=== PATIENT | male | born 1945 | race Two or more races ===

== ENCOUNTER 2017-12-02 15:53 | Emergency (ER) | payer SELFPAY ==
[2017-12-02] MEDS ORDERED: ACETAMINOPHEN 500 MG TABLET (FP) PO ONE (16:14)
--- NOTE | 2017-12-02 16:18 | PDOC ---
History of Present Illness - General Chief Complaint: Injury Stated Complaint: LEFT LEG PAIN,INJURY Time Seen by Provider: 12/02/17 15:57 - History of Present Illness Initial Comments: 12/02/17 16:17 72 year old male with NIDDM and herniated disc presents to the ED following a mechanical fall 3 days previous. Patient was walking down a wooden staircase in socks and slipped on the stairs falling down the last 4-5 stairs onto his L side. Denies any pre fall chest pain, shortness of breath, lightheadness, visual changes. Patient denies any head trauma or LOC and was immediately ambulatory afterwards. Patient has been taking Motrin for the pain but presented to the ED because he was concerned about the bruising. Patient has been ambulatory and completing all his ADL's as per baseline. Patient states Motrin has provided significant relief of the pain. NKDA Surgical: none Social: denies nicotine, denies alcohol, denies recreational drugs Past History - Past Medical History Allergies/Adverse Reactions: Allergies Allergy/AdvReac Type Severity Reaction Status Date / Time No Known Allergies Allergy Verified 12/02/17 15:54 Home Medications: Ambulatory Orders Unobtainable [Unobtainable] 12/02/17 Review of Systems - Review of Systems Constitutional: No: Chills, Fever HEENTM: No: Recent change in vision Respiratory: No: Cough, Shortness of Breath Cardiac (ROS): No: Chest Pain, Lightheadedness, Palpitations, Syncope ABD/GI: No: Constipated, Diarrhea, Nausea, Vomiting *Physical Exam - Physical Exam General Appearance: Yes: Nourished, Appropriately Dressed HEENT: positive: EOMI, ELIDIA Neck: positive: Trachea midline, Rigid Respiratory/Chest: positive: Lungs Clear Cardiovascular: positive: S1, S2. negative: Edema, JVD Vascular Pulses: Femoral (R): 2+, Femoral (L): 2+, Dorsalis-Pedis (R): 2+, Doralis-Pedis (L): 2+ Gastrointestinal/Abdominal: positive: Normal Bowel Sounds, Soft Musculoskeletal: negative: CVA Tenderness (R), CVA Tenderness (L) Extremity: positive: Normal Capillary Refill, Normal Inspection, Other (L hip eccymosis, full ROM, neurovasculary intact) Neurologic: positive: Fully Oriented, Alert Medical Decision Making - Medical Decision Making 12/02/17 18:09 72 year old male presents following a mechanical fall. On physical exam pelvis stable, neurovascularly intact, echymossis over L lateral thigh. XR negative for acute fracture. Patient remains ambulatory, declines prescription pain medication. Will discharge home with return precautions and PMD follow-up. *DC/Admit/Observation/Transfer Diagnosis at time of Disposition: Fall - Discharge Dispostion Disposition: HOME Condition at time of disposition: Good Admit: No - Referrals - Patient Instructions Printed Discharge Instructions: How to Prevent Falls Additional Instructions: You can take Motrin (600 mg) up to three times daily for your pain. Follow-up with your primary care doctor in the next 3-5 days. Return to the Emergency Department for any new/worsening/concerning symptoms. - Post Discharge Activity
[2017-12-02 16:27] VITALS: BP 143/79; PULSE 74; TEMP 98.2; BMI 31.0
[2017-12-02] MEDS ORDERED: ACETAMINOPHEN 500 MG TABLET (FP) ONE (16:53)
--- NOTE | 2017-12-02 17:36 | PDOC ---
Attending Attestation - Resident Resident Name: KatieKelli - ED Attending Attestation I have performed the following: I have examined & evaluated the patient, The case was reviewed & discussed with the resident, I agree w/resident's findings & plan, Exceptions are as noted - HPI HPI: 12/02/17 17:28 Mr Martinez is a 72 yo M h/o NIDDM and herniated disc who presents ambulatory to the ER with sons due to left femur pain s/p mechanical fall 3 days ago. Patient was walking down a wooden staircase in socks and slipped on the stairs falling down the last 4-5 stairs onto his L side. No preceding chest pain, shortness of breath, palpitations, focal weakness or numbness Pt has been ambulatory (+) left hip/thigh pain when walking Taking Motrin for pain - Physicial Exam PE: 12/02/17 17:32 GENERAL: The patient is in no acute distress. HEAD: Normal with no signs of trauma. EYES: PERRLA, EOMI, sclera anicteric, conjunctiva clear. ENT: Ears normal, nares patent, oropharynx clear without exudates. Moist mucous membranes. NECK: Normal range of motion, supple without lymphadenopathy, JVD, or masses. LUNGS: Breath sounds equal, clear to auscultation bilaterally. No wheezes, and no crackles. HEART:Regular rate and rhythm, normal S1 and S2 without murmur, rub or gallop. ABDOMEN: Soft, nontender, normoactive bowel sounds. No guarding, no rebound. No masses palpable. EXTREMITIES: Left hip tenderness, nml range of motion, Normal range of motion, no edema. NEUROLOGICAL: Cranial nerves II through XII grossly intact. Normal speech. No focal neurological deficits. MUSCULOSKELETAL: Back non-tender to palpation, no CVA tenderness SKIN: Warm, Dry, normal turgor, no rashes or lesions noted. - Medical Decision Making 12/02/17 17:36 72 yo M s/p trauma 3 days ago No signs to suggest syncope, pt reports mechanical fall No head trauma pt has pain in left hip but is ambulatory Will do xray Xray negative Will discharge to home Clinical Impression: musculoskeletal pain, initial presentation
== END 2017-12-02 17:38 | disposition home or self-care (01) ==
LOC: FER 15:53
DX: S70.12XA Contusion of left thigh, initial encounter (principal); W10.9XXA Fall (on) (from) unspecified stairs and steps, initial encounter; Y93.89 Activity, other specified; Y92.008 Other place in unspecified non-institutional (private) residence as the place of occurrence of the external cause
CPT/HCPCS: 73523-TC-FY; 73552-TC-LT-FY; 99282-25